=== PATIENT | female | born 1965 | race Caucasian/White ===

== ENCOUNTER 2025-04-28 00:49 | Emergency (ER) | payer BC, SELFPAY ==
[2025-04-28] VITALS (37 sets, daily range): BP systolic 90–123; BP diastolic 56–68; PULSE 73–105; RESP 12–25; TEMP 36.4–36.6; O2SAT 92–100
--- NOTE | ~2025-04-28 | CT_ITS ---
EXAMINATION: CT abdomen pelvis w con DATE: 04/28/2025 03:50 INDICATION: Epigastric pain TECHNIQUE: Computed tomography (CT) of the abdomen and pelvis was performed with 100 cc Omnipaque 350 intravenous contrast. The dose-length product was 204.60 mGy-cm. Automated exposure control and iterative reconstruction technique were employed. COMPARISON: None. FINDINGS: Lung bases unremarkable. Heart size normal. No significant pleural or pericardial effusion. Fatty infiltration of the liver. Cholelithiasis. No secondary findings to suggest cholecystitis. The spleen, pancreas, adrenal glands and kidneys are unremarkable. Nonobstructive bowel gas pattern. Moderate colonic fecal loading. No significant vascular abnormality. Nonobstructive bowel gas pattern. Moderate gastric distention with air-fluid levels. No wall thickening. No significant vascular abnormality. No lymphadenopathy. Moderate lumbar spondylosis most advanced at L4-5 and L5-S1. IMPRESSION: 1. No acute abdominal abnormality. Reviewed, dictated and finalized at location O.
[2025-04-28] MEDS: SODIUM CHLORIDE 0.9% IV 1,000 ML 999 ML IV CONT (01:05)
[2025-04-28] MEDS: FAMOTIDINE 20 MG/2 ML VIAL IV PUSH (01:06)
[2025-04-28] MEDS: ONDANSETRON INJ 4 MG/2 ML VIAL IV PUSH (01:06)
[2025-04-28 01:10] LABS: Hematocrit 45.1 % (37.0-47.0); Hemoglobin 14.6 g/dL (12.0-15.0); Immature Granulocyte Percent A 0.1 % (0-0.5); Lymphocytes Absolute Auto 1.79 K/mm3 (0.9-3.2); Mean Corpuscular HGB Conc 32.4 g/dl (32-36); Mean Corpuscular Hemoglobin 30.6 pg (26-34); Mean Corpuscular Volume 94.5 fl (80-100); Nucleated Red Blood Cells Absolute Auto 0.000 K/mm3 (0.0-0.012); Nucleated Red Blood Cells Perc 0.0 % (0.0-0.2); Platelet Count Result 233 k/mm3 (150-375); Red Blood Count 4.77 M/mm3 (4.2-5.4); White Blood Count 7.8 K/mm3 (4.5-10.0)
--- NOTE | 2025-04-28 01:12 | ECG_ITS ---
Test Date: 2025-04-28 01:22:12 Measurements Intervals [place] Rate: 92 P: 79 NE: 178 QRS: 55 QRSD: 83 T: 72 QT: 346 QTc: 429 Interpretive Statements SINUS RHYTHM POSSIBLE RIGHT VENTRICULAR CONDUCTION DELAY BASELINE ARTIFACT- I, III, AVL BORDERLINE ECG No previous ECG available for comparison Electronically Signed On 04-28-2025 07:36:46 CDT by Hugo Meeks D.O.
--- OUTSIDE RECORDS SUMMARY | 2025-04-28 01:15 | XMS_ITS | Encounter Summary ---
Author Organization [facility] Address [address] [place] [address] Care Team Providers Care Oil Heater Operator Name Role Phone Svetlana Howard Primary Care Provider + Westley Castro MD Primary Care Provider [phone] Sherine Dow MD Primary Care Provider + Encounter Details Date Type Department Care Team (Late st Contact Info) Description 07/23/2024 Flotypet Message Enc [facility] Family & Internal Medicine [facility] [address] [place] [phone] Svetlana Howard FNP-BC [address] [place] [address] Request for meds Social History Tobacco Use Types Packs/Day Years Used Date Smoking Tobacco: Never Smokeless Tobacco: Never Comments:non smoker Alcohol Use Standard Drinks/Week Comments Not Currently 0 (1 standard drink = 0.6 oz pur e alcohol) PHQ-2 Answer Date Recorded Patient Health Questionnaire-2 Score 0 05/30/2024 Comments No Sex and Gender Information Value Date Recorded Sex Assigned at Female 02/20/2020 4:04 PM CDT Legal Sex Female 7:13 PM CDT Gender Identity Female 02/20/2020 4:04 PM CDT Sexual Orientation Straight 02/20/2020 4: 04 PM CDT documented as of this encounter Progress Notes * GAVIN Wade - 07/23/2024 4:58 PM CST You can send fluconazole 150 mg PO once, qty 1 tab, no refills, dx yeast infection. If symptoms persist, I would recommend evaluation in the clinic. ER WORKER * Cindy Paulson RN - 07/23/2024 2:08 PM CST Please advise. ER WORKER documented in this encounter Plan of Treatment Upcoming Encounters Date Type Department Care Team (Late st Contact Info) Description 05/08/2025 8:00 AM CDT Appointment [facility] [address] [place], [place] [phone] [place] [address] [place] [address] 12/17/2025 7:30 AM CDT Office Visit [facility] Family Medicine - [place] [address] [place] [address] Sherine Dow MD [address] [place] [address] documented as of this encounter Visit Diagnoses Not on filedocumented in this encounter Additional Health Concerns Assessment Noted Time PHQ-9 Depression Total Score: 4 05/30/20 24 8:05 AM CDT documented as of this encounter Care Teams Oil Heater Operator Relationship Specialty Start Date End Date Svetlana Howard FNP-BC [address], [address] [place] [address] PCP - General Nurse Practitioner Family 06/27/2303/05 [place] [address] [facility] [address] [place] [address] PCP - General INTERNAL MEDICINE 03/16/25 04/25/25 Sherine Dow MD [address] [place] [address] PCP - General FAMILY PRACTICE 04/26/25 documented as of this encounter
--- OUTSIDE RECORDS SUMMARY | 2025-04-28 01:15 | XMS_ITS | Encounter Summary ---
Author Organization [facility] Address [address] [place] [address] Care Team Providers Care Mobile Equipment Servicer Name Role Phone AnitaSvetlana byrd Gracia [facility] Primary Care Provider + Westley Castro MD Primary Care Provider [phone] Sherine Dow MD Primary Care Provider + Encounter Details Date Type Department Care Team (Late st Contact Info) Description 06/18/2024 CREOpoint Message Enc [facility] Family & Internal Medicine [facility] [address] [place] [address] [facility] Provider referral Social History Tobacco Use Types Packs/Day Years [...] PM CDT documented as of this encounter Plan of Treatment Upcoming Encounters Date Type Department Care Team (Late st Contact Info) Description 05/08/2025 8:00 AM CDT Appointment [facility] [address] [place] [address] [place] [address] [place] [address] 12/17/2025 7:30 AM CDT Office Visit [facility] Family Medicine - [place] [address] [place] [address] Sherine Dow MD [address] [place] [phone] documented as of this encounter Visit Diagnoses Not on filedocumented in this encounter Additional Health Concerns Assessment Noted Time PHQ-9 Depression Total Score: 4 05/30/20 24 8:05 AM CDT documented as of this encounter Care Teams Mobile Equipment Servicer Relationship Specialty Start Date End Date Svetlana Howard, [facility]- [address], [address] [place] [address] PCP - General Nurse Practitioner Family 06/27/2303/05 [place] [address] [place] [address] PCP - General INTERNAL MEDICINE 03/16/25 04/25/25 Sherine Dow MD [address] [place] [address] PCP - General FAMILY PRACTICE 04/26/25 documented as of this encounter
--- OUTSIDE RECORDS SUMMARY | 2025-04-28 01:15 | XMS_ITS | Encounter Summary ---
Author Organization [facility] Address [address] [place] [address] Care Team Providers Care Vacuum Applicator Operator Name Role Phone Beatriz Najera NP Primary Care Provider Farzaneh Brennan [facility] Primary Care Provider + Svetlana Howard [facility] Primary Care Provider + Westley Castro MD Primary Care Provider [phone] Sherine Dow MD Primary Care Provider + Encounter Details Date Type Department Care Team (Late st Contact Info) Description 07/23/2019 SureVisitharShoutEm Message Enc [facility] [address] [place] [address] [place], [facility] Provider Medication/ mammogram Social History Tobacco Use Types Packs/Day Years Used Date Smoking Tobacco: Never Smokeless Tobacco: Never Alcohol Use Standard Drinks/Week Comments Yes 0 (1 standard drink = 0.6 oz pur e alcohol) socially Comments No Sex and Gender Information Value Date Recorded Sex Assigned at Female 02/20/2020 4:04 PM CDT Legal Sex Female 7:13 PM CDT Gender Identity Female 02/20/2020 4:04 PM CDT Sexual Orientation Straight 02/20/2020 4: 04 PM CDT documented as of this encounter Plan of Treatment Upcoming Encounters Date Type Department Care Team (Late st Contact Info) Description 05/08/2025 8:00 AM CDT Appointment [facility] [address] [place] [address] [place] [address] [place] [address] 12/17/2025 7:30 AM CDT Office Visit [facility] Family Medicine - [place] [address] [place] [address] Sherine Dow MD [address] [place] [address] documented as of this encounter Visit Diagnoses Not on filedocumented in this encounter Care Teams Vacuum Applicator Operator Relationship Specialty Start Date End Date Beatriz Najera NP PCP - General Nurse Practitioner Family 09/08/18 9 Farzaneh Grey, [facility] PCP - General Nurse Practitioner Family 08/08/19 Svetlana Howard, [facility] [address], [address] [place] [address] PCP - General Nurse Practitioner Family 06/27/2303/05 [place] [address] [place] [address] PCP - General INTERNAL MEDICINE 03/16/25 04/25/25 Sherine Dow MD [address] [place] [phone] PCP - General FAMILY PRACTICE 04/26/25 documented as of this encounter
--- OUTSIDE RECORDS SUMMARY | 2025-04-28 01:15 | XMS_ITS | Encounter Summary ---
Author Organization [facility] Address [address] [place] [address] Care Team Providers Care Hand Winder Name Role Phone Beatriz Najera NP Primary Care Provider Farzaneh Brennan [facility] Primary Care Provider + Svetlana Howard [facility] Primary Care Provider + Westley Castro MD Primary Care Provider [phone] Sherine Dow MD Primary Care Provider + Encounter Details Date Type Department Care Team (Late st Contact Info) Description 07/23/2019 MyChart Message Enc [facility] Family & Internal Medicine [address] [phone] Beatriz Najera NP Follow Up/Update Social History Tobacco Use Types Packs/Day Years [...] as of this encounter Progress Notes * Angela Kamara MA - 07/23/2019 7:26 AM CST Which mg would you like me to send? Also, ok to place order for mammogram? MILL OPERATOR documented in this encounter Plan of Treatment Upcoming Encounters Date Type Department Care Team (Late st Contact Info) Description 05/08/2025 8:00 AM CDT Appointment [facility] [address] [place] [address] [place] [address] [place] [address] 12/17/2025 7:30 AM CDT Office Visit [facility] Family Medicine - [place] [address] [place] [phone] Sherine Dow MD [address] [place] [phone] documented as of this encounter Visit Diagnoses Not on filedocumented in this encounter Care Teams Hand Winder Relationship Specialty Start Date End Date Beatriz Najera NP PCP - General Nurse Practitioner Family 09/08/18 9 Farzaneh Grey [facility]- PCP - General Nurse Practitioner Family 08/08/19 Svetlana Howard, [facility]- [address], [address] [place] [address] PCP - General Nurse Practitioner Family 06/27/2303/05 [place] [address] [address] [place] [address] PCP - General INTERNAL MEDICINE 03/16/25 04/25/25 Sherine Dow MD [address] [place] [address] PCP - General FAMILY PRACTICE 04/26/25 documented as of this encounter
--- OUTSIDE RECORDS SUMMARY | 2025-04-28 01:15 | XMS_ITS | Encounter Summary ---
Author Organization [facility] Address [address] [place] [address] Care Team Providers Care Ammonia Print Operator Name Role Phone Svetlana Howard [facility] Primary Care Provider + Westley Castro MD Primary Care Provider [phone] Sherine Dow MD Primary Care Provider + Encounter Details Date Type Department Care Team (Late st Contact Info) Description 01/14/2025 Uptake Medical[employer] Message Enc [facility] Family & Internal Medicine [facility] [phone] [place] [phone] Svetlana Howard, [address] [place] [address] PT Referral Social History Tobacco Use Types Packs/Day Years Used Date Smoking Tobacco: Never Passive Smoke Exposure: Never Smokeless Tobacco: Never Comments:non smoker Alcohol Use Standard Drinks/Week Comments Not Currently 0 (1 standard drink = 0.6 oz pur e alcohol) PHQ-2 Answer Date Recorded Patient Health Questionnaire-2 Score 2 11/26/2024 Comments No Sex and Gender Information Value Date Recorded Sex Assigned at Female 02/20/2020 4:04 PM CDT Legal Sex Female 7:13 PM CDT Gender Identity Female 02/20/2020 4:04 PM CDT Sexual Orientation Straight 02/20/2020 4: 04 PM CDT documented as of this encounter Plan of Treatment Upcoming Encounters Date Type Department Care Team (Late st Contact Info) Description 05/08/2025 8:00 AM CDT Appointment [facility] [address] [place] [address] [place] [address] [place] [address] 12/17/2025 7:30 AM CDT Office Visit [facility] Family Medicine - [place] [address] [place] [address] Sherine Dow MD [address] [place] [phone] documented as of this encounter Visit Diagnoses Not on filedocumented in this encounter Additional Health Concerns Assessment Noted Time PHQ-9 Depression Total Score: 5 11/27/19 9:55 AM CDT documented as of this encounter Care Teams Ammonia Print Operator Relationship Specialty Start Date End Date Svetlana Howard, [employer]- [address], [address] [place] [address] PCP - General Nurse Practitioner Family 06/27/2303/05 [place] [address] [place] [address] PCP - General INTERNAL MEDICINE 03/16/25 04/25/25 Sherine Dow MD [address] [place], [place] [address] PCP - General FAMILY PRACTICE 04/26/25 documented as of this encounter"
--- OUTSIDE RECORDS SUMMARY | 2025-04-28 01:15 | XMS_ITS | Encounter Summary ---
Author Organization [facility] Address [address] [place] [address] Care Team Providers Care Senior Test Analyst Name Role Phone Svetlana Howard [facility] Primary Care Provider + Westley Castro MD Primary Care Provider [phone] Sherine Dow MD Primary Care Provider + Encounter Details Date Type Department Care Team (Late st Contact Info) Description 08/17/2024 ApeniMEDt Message Enc [facility] Family & Internal Medicine [facility] [address] [place] [phone] Svetlana Howard, [address] [place] [address] Estrogen Social History Tobacco Use Types Packs/Day Years [...] as of this encounter Progress Notes * Aniya Harris MA - 08/17/2024 4:49 PM CST Called pt and let her know Svetlana's response. Pt asked if she was to get an increase on the oral dose if it would help with the dryness and if she was to switch back what would the directions be? The two everyday for a week and then twice a week like before? OLOGY TECHNICIAN * GAVIN Wade - 08/17/2024 3:58 PM CST I would not recommend oral and topical estrogen. The benefits of topical estrogen are that it does not have the systemic effects as oral estrogen and can be beneficial for vaginal dryness. If she is having systemic symptoms, like hot flashes, mood changes etc related to menopause, topical estrogen will not help with this. Okay to send topical Estrace 42.5 gram, 2 refills, dx vaginal dryness. OLOGY TECHNICIAN * Cindy Paulson RN - 08/17/2024 12:43 PM CST Please advise. OLOGY TECHNICIAN documented in this encounter Plan of Treatment Upcoming Encounters Date Type Department Care Team (Late st Contact Info) Description 05/08/2025 8:00 AM CDT Appointment [facility] [address] [place] [address] [place] [address] [place] [phone] 12/17/2025 7:30 AM CDT Office Visit [facility] Family Medicine - [place] [address] [place] [address] Sherine Dwo MD [address] [place], [place] [address] documented as of this encounter Visit Diagnoses Not on filedocumented in this encounter Additional Health Concerns Assessment Noted Time PHQ-9 Depression Total Score: 4 05/30/20 24 8:05 AM CDT documented as of this encounter Care Teams Senior Test Analyst Relationship Specialty Start Date End Date Svetlana Howard, [facility]- [address], [address] [place] [address] PCP - General Nurse Practitioner Family 06/27/2303/05 [place] [address] [place] [address] PCP - General INTERNAL MEDICINE 03/16/25 04/25/25 Sherine Dow MD [address] [place] [address] PCP - General FAMILY PRACTICE 04/26/25 documented as of this encounter
--- OUTSIDE RECORDS SUMMARY | 2025-04-28 01:15 | XMS_ITS | Clinical Summary ---
Author Organization [facility] Address [address] [place] [address] Care Team Providers Care Biztalk Administrator Name Role Phone Sherine Dow MD Primary Care Provider + Allergies Active Allergy Reactions Criticality Noted Date Comments Oxycodone-Acetaminophen Vomiting 02/17/2018 Trazodone Dizziness,Headache,N ausea Only Low 02/05/2022 Medications Cholecalciferol (VITAMIN D) 1000 UNIT tablet Take 1 tablet (25 mcg total) by mouth daily. 8 Active EMGALITY 120 MG/ML Solution Auto-injectorIn dications:1 shot monthly monthly. Indications: 1 shot monthly 0 Active Acetaminophen (TYLENOL ARTHRITIS PAIN OR) Active estradiol (CLIMARA) 0.025 MG/24HRIndicati ons:Vasomotor symptoms due to menopause Place 1 patch (0.025 mg total) onto the skin once a week. 12 patch 3 5 Active Estradiol (VAGIFEM) 10 MCG vaginal tabletIndicatio ns:Vaginal dryness, menopausal Place 10 mcg vaginally twice a week. 24 tablet 3 5 Active amitriptyline (ELAVIL) 25 MG tabletIndicatio ns:Episode of recurrent major depressive disorder, unspecified depression episode severity,PRABHU (generalized anxiety disorder) Take 0.5 tablets (12.5 mg total) by mouth nightly at bedtime. 50 tablet 3 5 Active buPROPion XL (WELLBUTRIN XL) 150 MG 24 hr tabletIndicatio ns:Episode of recurrent major depressive disorder, unspecified depression episode severity Take 1 tablet (150 mg total) by mouth daily. 90 tablet 3 5 Active fexofenadine (HELEN ALLERGY) 180 MG tablet 4 04/26/20 25 Discontinu ed(Therapy completed) amitriptyline (ELAVIL) 25 MG tabletIndicatio ns:Episode of recurrent major depressive disorder, unspecified depression episode severity,PRABHU (generalized anxiety disorder) Take 0.5 tablets (12.5 mg total) by mouth nightly at bedtime. 50 tablet 3 4 04/26/20 25 Discontinu ed(Reorder ) estradiol (ESTRACE) 0.1 MG/GM vaginal creamIndication s:Vaginal dryness, menopausal Place 2 g vaginally 2 (two) times a week. 42.5 g 2 4 04/26/20 Discontinu ed(Alterna te therapy) diazePAM (VALIUM) 2 MG tabletIndicatio ns:Neck pain Take 1 tablet (2 mg total) by mouth every 6 (six) hours as needed for Anxiety. 20 tablet 5 04/26/20 25 Discontinu ed(Therapy completed) buPROPion XL (WELLBUTRIN XL) 150 MG 24 hr tabletIndicatio ns:Episode of recurrent major depressive disorder, unspecified depression episode severity Take 1 tablet by mouth once daily 90 tablet 3 5 04/26/20 25 Discontinu ed(Reorder ) Active Problems Problem Noted Date Diagnosed Date Vaginal dryness, menopausal 11/28/2023 Vasomotor symptoms due to menopause 11/28/2023 Family history of aortic aneurysm 09/28/2023 PRABHU (generalized anxiety disorder) 04/14/2022 Overview (04/26/2025): - Reports anxiety and depression, with anxiety being more pronounced - Works from home and feels isolated due to [employer] 's frequent travel - Poor sleep quality - Takes a half dose of amitriptyline - Bupropion previously disrupted sleep - Referred to a psychiatrist and initiated on amitriptyline - Condition is manageable Migraine without aura and wi thout status migrainosus, not intractable 04/18/2020 Overview (04/26/2025): - Managed with Emgality and amitriptyline - Good symptom control - follows with neurology History of meningioma 11/21/2018 Overview (04/26/2025): - Underwent gamma knife surgery 3 years ago at [facility] - Annual follow-ups with no changes or neurological deficits post-surgery - Experienced severe headaches following the procedure Depression 02/17/2018 Resolved Problems Problem Noted Date Diagnosed Date Resolved Date Environmental and seasonal allergies 11/28/2023 04/26/2025 Chronic constipation 06/14/2019 023 Overview (08/12/2019): Last Assessment & Plan: The patient's symptoms seem most consistent with chronic constipation likely related to slow transit. The Metamucil may be contributing to her bloating. We will plan for a KUB today and if this shows retained stool, we would like her to switch to MiraLax. She can try taking a MiraLax clean out and then just a baseline half to 1 scoop daily to generate a soft and easy bowel movement every day to every other day. If the KUB is normal, we would consider an medication like nortriptyline for pain. If the abdominal pain continues in the absence of constipation, we discussed the possibility of nortriptyline or Levsin. The nortriptyline may have the side benefit of also helping with her migraines. Cardiovascular disease 01/27/201909/28 Crohn disease ([facility]) 2018 08/24/2021 Lower abdominal pain 06/15/2018 022 Overview (08/12/2019): Overview: Added automatically from request for surgery [id number] Weight loss 06/15/2018 08/24/2021 Overview (08/12/2019): Overview: Added automatically from request for surgery [id number] Generalized anxiety disorder 02/17/2018 04/14/2022 Encounter for preventive health examination 02/17/2018 05/16/2020 Hormone replacement therapy 02/17/2018 01/08/2023 Encounters Date Type Department Care Team Description 04/26/2025 8:10 AM CDT Office Visit [facility] Family Medicine - [place] [address] [place] [address] Sherine Dow MD Follow Up (Transferring from [place]. ) 04/26/2025 Travel 02/21/2025 Scan HEALTH INFO SRVCS Scanned, Doc [facility] 01/29/2025 Eventure Interactive Message Enc [facility] Family & Internal Medicine - [place] [address] [place] [address] Hiral Garza, ENTRY LEVEL ACCOUNTING CLERK-BC FMLA from Last 3 Months Immunizations Immunization Administration Dates Next Due Fluzone (IIV3, Trivalent, 0. 5 ML Prefilled Syringe) 05/30/2024 Fluzone 6 Months+ Quad (0.5 mL Prefilled Syringe) 07/21/2019,2018 Influenza Adult (Generic) 06/24/2022,07/18/2021, 06/16/2020 MODERNA COVID-19 (12+) MRNA, LNP-S, PF, 100 MCG/ 0.5 ML DOSE 10/07/2020,09/12/2020 MODERNA COVID-19 (ASPHALT HEATER OPERATOR LUIS AHSAN), MRNA, LNP-S, PF, 50 MCG/ 0.25 ML DOSE 09/04/2021 Family History Medical History Relation Comments Aortic aneurysm Brother 1 Drug Abuse Brother 1 bipolar disorder Brother 1 Mental Health Brother 2 No Known Problems Brother 3 Cancer Father pancreatic cancer Father Breast Cancer Maternal Grandmother 70'S aortic aneurysm Mother bipolar disorder Mother Alcohol Abuse Sister 1 aortic aneurysm Sister 1 Depression Sister 2 No Known Problems Sister 3 Cancer Son 1 Depression Son 1 Early Son 1 luekemia Son 1 Drug Abuse Son 2 Mental Health Son 2 None Neg Hx Relation Status Comments Brother 1 Brother 2 Alive Brother 3 Alive Father Maternal Grandmother Mother Sister 1 Alive Sister 2 Alive Sister 3 Alive Son 1 Son 2 Alive Social History Tobacco Use Types Packs/Day Years Used Date Smoking Tobacco: Never Passive Smoke Exposure: Never Smokeless Tobacco: Never Tobacco Cessation:Counseling Given: No Comments:non smoker Alcohol Use Standard Drinks/Week Comments [...] Orientation Straight 02/20/2020 4: 04 PM CDT Occupation Industry Job Start Date Job End Date [employer] Not on file Not on file Not on file Last Filed Vital Signs Vital Sign Reading Time Taken Comments Blood Pressure 106/71 04/26/2025 8:08 AM CDT Pulse 79 04/26/2025 8:08 AM CDT Temperature 36.5 C (97.7 F) 04/26/2025 8:08 AM CDT Respiratory Rate 20 12/12/2024 2:46 PM CDT Oxygen Saturation 100% 04/26/2025 8:08 AM CDT Inhaled Oxygen Concentration - - Weight 57.2 kg (126 lb) 04/26/2025 8:08 AM CDT Height 160 cm (5' 3) 04/26/2025 8:08 AM CDT Body Mass Index 22.32 04/26/2025 8:08 AM CDT Plan of Treatment Upcoming Encounters Date Type Department Care Team (Late st Contact Info) Description 05/08/2025 8:00 AM CDT Appointment [facility] [address] [place], [place] [phone] [place] [address] [facility] [address] [place], [place] [phone] 12/17/2025 7:30 AM CDT Office Visit [facility] Family Medicine - [place] [address] [place] [address] Sherine Dow MD [address] [place] [address] [phone] Health Maintenance Due Date Last Done Comments Hepatitis C 1983 Pneumococcal Vaccine: 50+ Years (1 of 1 - PCV) 2015 Mammogram Screening 02/09/2025 02/10/2024, 08/20/2022, 08/20/2021, Additional history exists Annual Physical 11/26/2025 11/26/2024, 08/0 12/2021, 07/08/2020 COVID-19 Vaccine ( season) 2025 10/21/2023, 08/25/2022, 09/04/2021, Additional history exists Postponed from 05/06/2024 (Patient Refused) Zoster Vaccines (1 of 2) 11/26/2025 Pos tponed from 2015 (Going to Outside Clinic) Colorectal Cancer Screening Colonoscopy (10 Years) 06/30/2028 06/30/2018 DTaP, Tdap and Td Vaccines (1 - Tdap) 09/05/2028 Postponed from 1984 (Future Appointment) PHQ-2 (Physician [place]) Completed 11/26/2024 Meningococcal B Vaccine Aged Out No l onger eligible based on patient's age to complete this topic Meningococcal Vaccine Aged Out No josephine heriberto eligible based on patient's age to complete this topic RSV Immunizations Under 20 Months Aged Out No longer eligible based on patient's age to complete this topic Procedures Procedure Name Priority Date/Time Associated Diagnosis Comments MG SCREENING W EFREN PAM DIGI Routine 02/10/2024 10:46 AM CDT Encounter for screening mammogram for malignant neoplasm of breast COLONOSCOPY/EGD GENERIC (SCAN ORDER) Routine 06/30/2018 from Last 3 Months or Most Recently Relevant to Health Maintenance Results * MG SCREENING W EFREN PAM DIGI (02/10/2024 10:46 AM CDT) Anatomical Region Laterality Modality Breast Bilateral Mammography 02/10/2024 3:25 PM CDT Impressions 02/10/2024 3:52 PM CDT ===== IMPRESSION: ===== 1. Stable mammographic appearance with no new findings to suggest malignancy in either breast. Assessment: ACR BI-RADS 2 - BENIGN FINDING(S) Recommendation: 1:Routine Screening Bilateral Comments: Ordered By: HIRAL GARZA Interpreted By: Marcos Velasquez, 02/10/2024 3:25 PM Narrative 02/10/2024 3:52 PM CDT EXAMINATION: Digital bilateral screening mammogram with 3-D tomosynthesis EXAM DATE/TIME: 02/10/2024 10:32 AM REASON FOR EXAM: breast cancer screening Maternal grandmother with breast carcinoma in her 70s. COMPARISON: 08/20/2021.. 08/20/2022 Technique: Digital screening mammography of both breasts was performed in addition to 3-D Tomosynthesis technique. This study was read with the assistance of a computer-aided detection system. Tissue density: There are scattered areas of fibroglandular density. Findings: Stable benign lymph node in the upper outer quadrant of the right breast. There is no new focal asymmetry, dominant mass lesion, area of skin thickening, or cluster of suspicious appearing calcifications in either breast to suggest malignancy. us Hiral Garza ENTRY LEVEL ACCOUNTING CLERK-BC MAMMO Final Re sult * COLONOSCOPY/EGD (06/30/2018) us Documents Scanned SCANNING Final Result [facility] from Last 3 Months or Most Recently Relevant to Health Maintenance [place] [address] [facility] Care Teams Biztalk Administrator Relationship Specialty Start Date End Date Sherine Dow MD [address] [place] [phone] PCP - General FAMILY PRACTICE 04/26/25
--- OUTSIDE RECORDS SUMMARY | 2025-04-28 01:15 | XMS_ITS | Encounter Summary ---
Author Organization [facility] Address [address] [place] [address] Care Team Providers Care Frame Table Operator Name Role Phone Beatriz Najera NP Primary Care Provider Farzaneh Brennan [facility] Primary Care Provider + Svetlana Howard [facility] Primary Care Provider + Westley Castro MD Primary Care Provider [phone] Sherine Dow MD Primary Care Provider + Encounter Details Date Type Department Care Team (Late st Contact Info) Description 08/06/2019 MyCOstial Solutionst Message Enc [facility] Family & Internal Medicine [address] [phone] Destiney Thompson NP RE: Follow Up/Update Social History Tobacco Use Types [...] as of this encounter Progress Notes * Destiney Thompson NP - 08/06/2019 4:10 PM CST I will send in diflucan again, take one today and repeat in 48 hours. If still having burning and itching, may need to see in office to make sure it is not something else. Thanks. radha AL HEALTH DIRECTOR * Barbara Lorenzana, RN - 08/06/2019 3:05 PM CST Please advise. AL HEALTH DIRECTOR documented in this encounter Plan of Treatment Upcoming Encounters Date Type Department Care Team (Late st Contact Info) Description 05/08/2025 8:00 AM CDT Appointment [facility] [address] [place], [place] [phone] [place] [address] [employer] [address] [place] [phone] 12/17/2025 7:30 AM CDT Office Visit [facility] Family Medicine - [place] [address] [place] [phone] Sherine Dow MD [address] [place] [phone] documented as of this encounter Visit Diagnoses Not on filedocumented in this encounter Care Teams Frame Table Operator Relationship Specialty Start Date End Date Beatriz Najera NP PCP - General Nurse Practitioner Family 09/08/18 9 Farzaneh Grey, [facility] PCP - General Nurse Practitioner Family 08/08/19 Svetlana Howard, [facility]- [address], [address] [place] [address] PCP - General Nurse Practitioner Family 06/27/2303/05 [place] [address] [facility] [address] [place] [address] PCP - General INTERNAL MEDICINE 03/16/25 04/25/25 Sherine Dow MD [address] [place] [address] PCP - General FAMILY PRACTICE 04/26/25 documented as of this encounter
--- OUTSIDE RECORDS SUMMARY | 2025-04-28 01:15 | XMS_ITS | Encounter Summary ---
Author Organization [facility] Address [address] [place] [address] Care Team Providers Care Mechanical Insulator Name Role Phone Svetlana HowardGUANAKITO Primary Care Provider + Westley Castro MD Primary Care Provider [phone] Sherine Dow MD Primary Care Provider + Encounter Details Date Type Department Care Team (Late st Contact Info) Description 01/29/2025 SimplyCastt Message Enc [facility] Family & Internal Medicine [facility] [address] [place] [phone] Svetlana Howard [facility] [address] [place] [address] FMLA Social History Tobacco Use Types Packs/Day Years [...] encounter Progress Notes * GAVIN Wade - 01/30/2025 11:59 AM CDT Okay. I will complete when I have received the paperwork. documented in this encounter Plan of Treatment Upcoming Encounters Date Type Department Care Team (Late st Contact Info) Description 05/08/2025 8:00 AM CDT Appointment [facility] [address] [place] [address] [place] [address] [address] [place] [address] 12/17/2025 7:30 AM CDT Office Visit [facility] Family Medicine [facility] [address] [place] [phone] Sherine Dow MD [address] [place] [address] [phone] documented as of this encounter Visit Diagnoses Not on filedocumented in this encounter Additional Health Concerns Assessment Noted Time PHQ-9 Depression Total Score: 5 11/27/19 25 9:55 AM CDT documented as of this encounter Care Teams Mechanical Insulator Relationship Specialty Start Date End Date Svetlana Howard FNP- [address], [address] [place] [address] PCP - General Nurse Practitioner Family 06/27/2303/05 [place] [address] [address] [place] [address] PCP - General INTERNAL MEDICINE 03/16/25 04/25/25 Sherine Dow MD [address] [place] [address] PCP - General FAMILY PRACTICE 04/26/25 documented as of this encounter
--- OUTSIDE RECORDS SUMMARY | 2025-04-28 01:15 | XMS_ITS | Encounter Summary ---
Author Organization [facility] Address [address] [place] [address] Care Team Providers Care Mender Hand Name Role Phone Beatriz Najera NP Primary Care Provider Farzaneh Brennan [facility] Primary Care Provider + Svetlana Howard [facility] Primary Care Provider + Westley Castro MD Primary Care Provider [phone] Sherine Dow MD Primary Care Provider + Encounter Details Date Type Department Care Team (Late st Contact Info) Description 09/25/2018 MyChart Message Enc [facility] Family & Internal Medicine [address] [phone] Beatriz Najera NP RE: Medication Questions Social History Tobacco Use Types Packs/Day Years [...] Info) Description 05/08/2025 8:00 AM CDT Appointment [address] [place] [address] [place] [address] [place] [address] 12/17/2025 7:30 AM CDT Office Visit [facility] Family Medicine - [place] [address] [place] [phone] Sherine Dow MD [address] [place] [phone] documented as of this encounter Visit Diagnoses Not on filedocumented in this encounter Care Teams Mender Hand Relationship Specialty Start Date End Date Beatriz Najera NP PCP - General Nurse Practitioner Family 09/08/18 9 Farzaneh Grey, [facility]- PCP - General Nurse Practitioner Family 08/08/19 Svetlana Howard, [facility]- [address], [address] [place] [address] PCP - General Nurse Practitioner Family 06/27/2303/05 [place] [address] [place] [address] PCP - General INTERNAL MEDICINE 03/16/25 04/25/25 Sherine Dow MD [address] [place] [address] PCP - General FAMILY PRACTICE 04/26/25 documented as of this encounter
--- OUTSIDE RECORDS SUMMARY | 2025-04-28 01:15 | XMS_ITS | Clinical Summary ---
Author Organization [facility] al Address [address] [place] [address] Care Team Providers Care Hat Maker Name Role Phone Nila Rush MD Unavailable Joselito Major MD Unavailable Kady Salinas PhD Unavailable [phone] Svetlana Howard NP Primary Care Provider [phone] Allergies Active Allergy Reactions Criticality Noted Date Comments Oxycodone-Acetaminophen Vomiting Low 09/30/2016 Trazodone Dizziness,Headache,N ausea only Low 02/05/2022 Medications buPROPion SR (WELLBUTRIN SR) 150 mg 12 hr tablet Take 1 tablet (150 mg total) by mouth daily 0 03/30/20 18 Active cholecalciferol (VITAMIN D-3) 1,000 unit tablet Take 1 tablet (1,000 Units total) by mouth daily Active amitriptyline (ELAVIL) 25 mg tablet TAKE 1/2 (ONE-HALF) TABLET BY MOUTH NIGHTLY AT BEDTIME 01/21/20 23 Active Premarin vaginal cream Insert into the vagina Active fexofenadine (HELEN) 180 mg tablet 1 tablet (180 mg total) 11/18/19 24 Active galcanezumab-gnlm (Emgality Pen) 120 mg/mL pen injector INJECT 120 MG SUBCUTANEOUSLY EVERY 30 DAYS. 3 mL 2 01/01/20 25 Active rizatriptan LAMINATING MACHINE OPERATOR HELPER (MAXALT-LAMINATING MACHINE OPERATOR HELPER) 10 mg disintegrating tabletIndications: Migraine without aura and without status migrainosus, not intractable Take 1 tablet (10 mg total) by mouth once as needed for migraine May repeat in 2 hours if unresolved. Do not exceed 30 mg in 24 hours. 27 tablet 3 01/16/20 25 026 Active Active Problems Problem Noted Date Diagnosed Date JOSEPHINE (obstructive sleep apnea) 01/15/2025 PRABHU (generalized anxiety disorder) 04/14/2022 Migraine headache 04/18/2020 Migraine without aura and wi thout status migrainosus, not intractable 04/18/2020 Chronic constipation 06/14/2019 Assessment & Plan (06/14/2019 8:49 AM CDT): The patient's symptoms seem most consistent with [...] also helping with her migraines. Cardiovascular disease 01/27/2019 Meningioma 11/21/2018 Weight loss 06/15/2018 Overview (06/15/2018): Added automatically from request for surgery [id number] Lower abdominal pain 06/15/2018 Overview (06/15/2018): Added automatically from request for surgery [id number] Depression 02/17/2018 Apnea 04/14/2017 Daytime somnolence 04/14/2017 Fatigue 04/14/2017 Gasping for breath 04/14/2017 Morning headache 04/14/2017 Restless sleeper 04/14/2017 Snoring 04/14/2017 Epigastric discomfort 04/04/2017 Hematochezia 04/04/2017 Hereditary disease in family possibly affecting fetus, affecting management of mother in 01/15/2017 Aneurysm of thoracic aorta 01/13/2017 Chest pain 01/13/2017 Breast tenderness 09/30/2016 Resolved Problems Problem Noted Date Diagnosed Date Resolved Date Diarrhea 06/15/2018 07/20/2019 Overview (06/15/2018): Added automatically from request for surgery [id number] Assessment & Plan (06/14/2019 8:50 AM CDT): Though the patient denies any diarrhea, she did seem to respond to budesonide. We would like to check her stools for calprotectin to rule out inflammation in the bowel. Immunizations Immunization Administration Dates Next Due Influenza, Quadrivalent, Spl it, Preservative Free, Intramuscular 07/21/2019,2018 Influenza, Unspecified 06/24/2022,07/18/2021,08/2020 Moderna SARS-CoV-2 Monovalen t Vaccination (12+ YRS) 10/07/2020,09/12/2020 Surgical History Surgery Date Site/Laterality Comments [place] TOTAL ABDOMINAL HYSTERECT W/WO RMVL TUBE OVARY Total Abdominal Hysterectomy - (Added by TW Conv) [place] OSTECTOMY CALCANEUS SPUR W/WO PLNTAR FASCIAL RLS Ostectomy Calcaneus For Spur - (Added by TW Conv) [place] TONSILLECTOMY PRIMARY/SECONDARY <AGE 12 Tonsillectomy - (Added by TW Conv) Medical History Medical History Date Comments Personal history of other me ntal and behavioral disorders History of anxiety - (Added by TW Conv) Personal history of other me ntal and behavioral disorders History of depression - (Add ed by TW Conv) Constipation Meningioma (HCC) Migraine TMJ (dislocation of temporomandibular joint) Family History Medical History Relation Name Comments Aortic aneurysm Brother Cancer Father Family history of malignant neoplasm - (Added by TW Conv) Pancreatic cancer Father Family his tory of malignant neoplasm of pancreas - (Added by TW Conv) Breast cancer Maternal Grandmother Family history of malignant neoplasm of breast - (Added by TW Conv) Aortic aneurysm Mother Sudden Cardiac Mother Family history of sudden cardiac - (Added by TW Conv) Aortic aneurysm Sister 1 Sudden Cardiac Sister 1 Family history of sudden cardiac - (Added by TW Conv) Lupus Sister 2 Family history of systemic lupus erythematosus - (Added by TW Conv) Pancreatic cancer Son 1 Family his tory of malignant neoplasm of pancreas - (Added by TW Conv) Cancer Son 2 Family history of malignant neoplasm - (Added by TW Conv) Glaucoma Neg Hx Macular degeneration Neg Hx Relation Name Status Comments Brother Father Maternal Grandmother Mother Sister 1 Sister 2 Son 1 Son 2 Social History Tobacco Use Types Packs/Day Years Used Date Smoking Tobacco: Never Smokeless Tobacco: Never Tobacco Cessation:Counseling Given: Not Answered Alcohol Use Standard Drinks/Week Comments Not Currently 0 (1 standard drink = 0.6 oz pur e alcohol) AUDIT-C Answer Date Recorded Q1: How often do you have a drink containing alc ohol? 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 Not on file Not on file Not on file Obstetrics History Last Filed Vital Signs Vital Sign Reading Time Taken Comments Blood Pressure 102/69 01/15/2025 9:29 AM CDT Pulse 92 01/15/2025 9:29 AM CDT Temperature 36.6 C (97.9 F) 01/15/2025 9:29 AM CDT Respiratory Rate 18 08/07/2024 12:46 PM CARBON SETTER Oxygen Saturation 100% 01/15/2025 9:29 AM CDT Inhaled Oxygen Concentration - - Weight 61 kg (134 lb 8 oz) 01/15/2025 9:29 AM CD T Height 160 cm (5' 3) 01/15/2025 9:29 AM CDT Body Mass Index 23.83 01/15/2025 9:29 AM CDT Plan of Treatment Health Maintenance Due Date Last Done Comments Cervical Cancer Screening 1965 Depression Screening 1965 Hepatitis C Screening 1965 DTaP/Tdap/Td Vaccine (1 - Tdap) 1976 Hepatitis B Screening 1983 Regular Well Visit/Exam 18-64 1983 Zoster Vaccine (1 of 2) 2015 Covid-19 Vaccine ( season) 2024 09/04/2021, 10/07/2020, 09/12/2020 Breast Cancer Screening-Mammogram 02/09/2025 02/10/2024, 02/10/2024, 08/20/2022, Additional history exists Influenza Vaccine (#1) 2025 , 06/24/2022, 07/18/2021, Additional history exists Colon Cancer Screening-Colonoscopy 06/30/2028 06/30/2018 Colon Cancer Screening-CT Colonography Discontinued 06/30/2018 Colon Cancer Screening-DNA Stool Discontinued 06/30/2018 Colon Cancer Screening-FIT Discontinued 06/30/2018 Colon Cancer Screening-Sigmoidoscopy Discontinued 06/30/2018 Pneumococcal vaccine <65 Aged Out No longer eligible based on patient's age to complete this topic Procedures Procedure Name Priority Date/Time Associated Diagnosis Comments COLONOSCOPY 06/30/2018 7:16 AM CDT from Last 3 Months or Most Recently Relevant to Health Maintenance Results * COLONOSCOPY (06/30/2018 7:16 AM CDT) Anatomical Region Laterality Modality Other Narrative Procedure Note Faheem Pinzon MD PhD - 06/30/2018 7:16 AM CDT [facility] Patient Name: Martha Castellanos Procedure Date: 06/30/2018 7:16 AM Date of : 1965 Admit Type: Outpatient Age: 52 Gender: Female Attending MD: Faheem Pinzon MD, PHD Room: [facility] ENDOSCOPY ROOM 02 Note Status: Finalized Procedure: Colonoscopy Indications: Abdominal pain in the left lower quadrant, Chronic diarrhea, Suspected left-sided chronic ulcerative colitis Referring MD: Huong Serrano MD Providers: Faheem Pinzon MD, PHD Medicines: Monitored Anesthesia Care Complications: No immediate complications. Estimated Blood Loss: Estimated blood loss: none. Procedure: Pre-Anesthesia Assessment: - Prior to the procedure, a History and Physical was performed, and patient medications and allergieswere reviewed. The patient is competent. The risks and benefits of the procedure and the sedation optionsand risks were discussed with the patient. All questions were answered and informed consent was obtained. Patient identification and proposed procedure were verified by the physician in the pre-procedure area. Mental Status Examination: alert and oriented.Airway Examination: normal oropharyngeal airway and neck mobility. Respiratory Examination: clear to auscultation. CV Examination: normal. ASA Grade Assessment: II - A patient with mild systemicdisease. After reviewing the risks and benefits, the patientwas deemed in satisfactory condition to undergo the procedure. The anesthesia plan was to use monitored anesthesia care (MAC). Immediately prior to administration of medications, the patient was re-assessed for adequacy to receive sedatives. The heart rate, respiratory rate, oxygen saturations,blood pressure, adequacy of pulmonary ventilation, and response to care were monitored throughout the procedure. The physical status of the patient was re-assessed after the procedure. - Immediately prior to administration ofmedications, the patient was re-assessed for adequacy to receive sedatives. The benefits, risks and alternatives of theprocedure and sedation were discussed and informed consent was obtained. All questions were answered. Please referto the signed informed consent document in the medical record. The scope was passed under direct vision.The [id number] Endoscope was introduced throughthe anus and advanced to the 10 cm into the ileum. The colonoscopy was performed without difficulty. The patient tolerated the procedure well. The quality of the bowel preparation was evaluated using the BBPS ([place] Bowel Preparation Scale) with scores of:Right Colon = 3, Transverse Colon = 3 and Left Colon = 3 (entire mucosa seen well with no residual staining, small fragments of stool or opaque liquid). Thetotal BBPS score equals 9. The quality of the bowel preparation was evaluated using the BBPS (BostonBowel Preparation Scale) with scores of: Right Colon = 3, Transverse Colon = 3 and Left Colon = 3 (entiremucosa seen well with no residual staining, small fragmentsof stool or opaque liquid). The total BBPS score equals9. The bowel preparation used was CoLyte. Findings: The perianal and digital rectal examinations were normal. The terminal ileum appeared normal. Biopsies were taken with a cold forceps for histology. The transverse colon and ascending colon appeared normal. Biopsieswere taken with a cold forceps for histology. A patchy area of mildly erythematous, granular and rdyuynks-jbjjcuv-vmtfjswuu mucosa was found in the recto-sigmoidcolon. Biopsies were taken with a cold forceps for histology. Impression: Follow-up for right upper quadrant pain, diarrhea, abdominal distention, hematochezia. - The examined portion of the ileum was normal. Biopsied. - The transverse colon and ascending colon arenormal. Biopsied. - Erythematous, granular ygkkwalrjwu-pivdhyh-kyopxnhet mucosa in the recto-sigmoid colon. Biopsied. Endoscopic findings could be consistent with mildleft Ulcerative Colitis. Recommendation: - Await pathology results. - Give a trial of oral mesalamine. We appreciate your patient referrals and please donot hesitate to contact our [facility] at [phone]. Electronically signed by Faheem Pinzon MD PHD Faheem Pinzon MD, PHD 06/30/2018 3:24:49 PM . Number of Addenda: 0 Note Initiated On: 06/30/2018 7:16 AM Recognized by the [place] [employer] for promoting quality in endoscopy Faheem Pinzon MD PhD ENDOSCOPY PROCEDURES Final Result from Last 3 Months or Most Recently Relevant to Health Maintenance [place] [address] CHOICE [place]F [place] [facility] CHOICE PLUS [facility] HMO/PPO Address: [address] [address] [place] [address] ANTH ACCESS BL[place] ACCESS [place] BLUE ACCESS [place]OS BLUE ACCESS OOS BLUE ACCESS OOS Care Teams Hat Maker Relationship Specialty [place] [address], [address] [place] [address] PCP - General Family Medicine 01/12/24 Nila Rush MD [address] [place] [address] Radiation Oncologist Radiation Oncology 12/29/21 Joselito Major MD [address] [place] [address] Surgeon Neurosurgery 02/09/22 Kady Salinas, PhD [address] [place] [address] Nurse Practitioner Radiation Oncology 08/11/22
--- OUTSIDE RECORDS SUMMARY | 2025-04-28 01:15 | XMS_ITS | Encounter Summary ---
Author Organization [facility] Address [address] [place] [address] Care Team Providers Care Scheduling Analyst Name Role Phone Farzaneh Grey [facility] Primary Care Provider + Svetlana Howard [facility] Primary Care Provider + Westley Castro MD Primary Care Provider [phone] Sherine Dow MD Primary Care Provider + Encounter Details Date Type Department Care Team (Late st Contact Info) Description 10/29/2020 MyChart Message Enc [facility] Family & Internal Medicine [address] [address] Farzaneh Grey [id number] [place] [address] RE: Referral Request Social History Tobacco Use Types Packs/Day Years Used Date Smoking Tobacco: Never Smokeless Tobacco: Never Alcohol Use Standard Drinks/Week Comments Yes 0 (1 standard drink = 0.6 oz pur e alcohol) socially PHQ-2 Answer Date Recorded PHQ-2 Score - If the patient scores above 3, please move on to questions 3-9 0 07/08/2020 Comments No Sex and Gender Information Value Date Recorded Sex Assigned at Female 02/20/2020 4:04 PM CDT Legal Sex Female 7:13 PM CDT Gender Identity Female 02/20/2020 4:04 PM CDT Sexual Orientation Straight 02/20/2020 4: 04 PM CDT documented as of this encounter Progress Notes * GAVIN Charles - 10/29/2020 10:23 AM CST Okay to place order with dx of back pain. MOLDER documented in this encounter Plan of Treatment Upcoming Encounters Date Type Department Care Team (Late st Contact Info) Description 05/08/2025 8:00 AM CDT Appointment [facility] [address] [place] [address] [place] [address] [place] [address] 12/17/2025 7:30 AM CDT Office Visit [facility] Family Medicine - [place] [address] [place] [id number] Sherine Dow MD [address] [place] [address] documented as of this encounter Visit Diagnoses Not on filedocumented in this encounter Care Teams Scheduling Analyst Relationship Specialty Start Date End Date Farzaneh Grey FNP-BC PCP - General Nurse Practitioner Family 08/08/19 Svetlana Howard FNP-BC [address], [address] [place] [address] PCP - General Nurse Practitioner Family 06/27/2303/05 [place] [address] [place] [address] PCP - General INTERNAL MEDICINE 03/16/25 04/25/25 Sherine Dow MD [address] [place] [address] PCP - General FAMILY PRACTICE 04/26/25 documented as of this encounter
[2025-04-28 01:18] LABS: Alanine Aminotransferase 12 U/L (6-35); Albumin Level 4.9 g/dL (3.5-5.1); Alkaline Phosphatase 71 U/L (38-126); Anion Gap 13 mmol/L (4-12); Aspartate Amino Transferase 22 U/L (14-36); Bilirubin,Total 0.6 mg/dL (0.2-1.3); Blood Urea Nitrogen 15 mg/dL (7-17); Calcium 10.0 mg/dL (8.4-10.2); Carbon Dioxide 24 mmol/L (22-30); Chloride 104 mmol/L (98-107); Estimated CRCL calculation 56 ml/min; Estimated Glomerular Filt Rate > 60; Glucose 107 mg/dL (65-110); Lipase 124 U/L (23-300); Potassium 3.8 mmol/L (3.4-5.0); Sodium 141 mmol/L (137-145); Total Protein 7.6 g/dL (6.3-8.2)
--- NOTE | 2025-04-28 01:29 | ED.ABDPAIN ---
HPI - Abdominal Pain General Chief Complaint: Abdominal Pain <Deandre Wheeler MD - Last Filed: 04/29/25 02:12> Stated Complaint: abd pain medial <Deandre Wheeler MD - Last Filed: 04/29/25 02:12> Time Seen by Provider: 04/28/25 00:58 <Deandre Wheeler MD - Last Filed: 04/29/25 02:12> History of Present Illness HPI narrative: Patient is a 59-year-old female who presents to the emergency department this evening complaining of neno umbilical/mid epigastric abdominal pain associated with nausea and vomiting. Patient states that approximately 5 weeks ago she did start a G LP 1 medication and believes that is the cause of her symptoms. She is concerned for pancreatitis. States that she has tried [id number] pain medication and Zofran without relief. Denies any chest pain or shortness of breath. No additional symptoms or concerns at this time. <Deandre Wheeler MD - Last Filed: 04/29/25 02:12> Related Data Allergies/Adverse Reactions: Allergies Allergy/AdvReac Type Severity Reaction Status Date / Time acetaminophen (From Percocet) AdvReac Intermediate Nausea and Verified 04/28/25 00:58 Vomiting oxycodone (From Percocet) AdvReac Intermediate Nausea and Verified 04/28/25 00:58 Vomiting trazodone AdvReac Unknown Unknown Verified 04/28/25 01:44 <Deandre Wheeler MD - Last Filed: 04/29/25 02:12> Review of Systems Review of Systems: All systems are reviewed and are negative unless stated otherwise in the HPI. <Deandre Wheeler MD - Last Filed: 04/29/25 02:12> PMFSH Family History Family History: Family History Father Family history of pancreatic cancer Patient's father is Mother Patient's mother is Other Family history of malignant neoplasm <Deandre Wheeler MD - Last Filed: 04/29/25 02:12> Social History Social History: Social History Smoking status: Never smoker Alcohol intake: current <Deandre Wheeler MD - Last Filed: 04/29/25 02:12> Exam Narrative: General: Alert, awake, afebrile, in no acute distress. HEENT: PERRL, no rhinorrhea, no post nasal drip, oropharynx clear. Neck: Trachea midline, no JVD, no lymphadenopathy. Cardiovascular: Regular rate and rhythm, no murmurs, rubs or gallops, no peripheral edema. Respiratory: Clear to auscultation bilaterally, no tachypnea, no wheezing, no rhonchi, no rubs, no respiratory distress. Abdomen: Soft, nontender, nondistended, no rebound, no guarding, no peritoneal signs. Musculoskeletal: No joint swelling or deformity, normal muscle tone. Skin: No rashes or petechia, no signs of infection. Psychiatric: Alert and oriented, normal behavior and judgment for situation. Neurological: Alert and oriented to person, place, and time. Follows all commands. No focal deficits, speech is clear and fluent. <Deandre Wheeler MD - Last Filed: 04/29/25 02:12> Course Vital Signs Vital signs: Vital Signs Temperature 97.9 F 04/28/25 00:55 Pulse Rate 105 H 04/28/25 00:55 Respiratory Rate 18 04/28/25 00:55 Blood Pressure 123/56 L 04/28/25 00:55 Pulse Oximetry 100 04/28/25 00:55 Oxygen Delivery Room Air 04/28/25 00:55 Temperature 97.6 F 04/28/25 05:20 Pulse Rate 86 04/28/25 07:42 Respiratory Rate 20 04/28/25 07:42 Blood Pressure 100/58 L 04/28/25 07:42 Pulse Oximetry 100 04/28/25 07:42 Oxygen Delivery Room Air 04/28/25 00:55 <Deandre Wheeler MD - Last Filed: 04/29/25 02:12> Vital Signs Temperature 97.9 F 04/28/25 00:55 Pulse Rate 105 H 04/28/25 00:55 Respiratory Rate 18 04/28/25 00:55 Blood Pressure 123/56 L 04/28/25 00:55 Pulse Oximetry 100 04/28/25 00:55 Oxygen Delivery Room Air 04/28/25 00:55 Temperature 97.6 F 04/28/25 05:20 Pulse Rate 86 04/28/25 07:42 Respiratory Rate 20 04/28/25 07:42 Blood Pressure 100/58 L 04/28/25 07:42 Pulse Oximetry 100 04/28/25 07:42 Oxygen Delivery Room Air 04/28/25 00:55 <Jami Cao MD - Last Filed: 04/28/25 07:30> MDM - Abdominal Pain MDM Narrative Medical decision making narrative: The patient was evaluated by myself in the emergency department. History is obtained from patient who is an independent historian and physical exam was performed. External medical records were reviewed at this time. IV was established and pertinent tests were ordered. Patient was administered 1 L IV fluid bolus with normal saline, 20 mg of IV Pepcid, 4 mg of IV Zofran and 2 mg of IV morphine. EKG was obtained which revealed sinus rhythm rate of 92 beats per minute, no evidence of acute ischemia. EKG was independently interpreted by me and is currently pending official cardiology read. Laboratory results obtained revealing no acute process. Lipase normal. Imaging studies obtained included CT abdomen pelvis with IV contrast which is currently pending. Patient was signed out to a.m. ED physician pending CT results. PATIENT WAS SIGNED OUT TO ME AT SHIFT CHANGE WAITING FOR CT SCAN OF THE ABDOMEN AND PELVIS WITH IV CONTRAST WHICH SHOWED NO DEFINITE ACUTE INFLAMMATORY OR OBSTRUCTIVE PROCESS IS SEEN WITHIN THE ABDOMEN OR PELVIS. CURRENTLY PATIENT LYING DOWN IN BED, ASYMPTOMATIC. DIAGNOSIS ABDOMINAL PAIN OF UNKNOWN ETIOLOGY, HIGH LIKELY SECONDARY TO WEIGHT LOSS MEDICINE. DISCHARGED ON BENTYL AND ZOFRAN. <Deandre Wheeler MD - Last Filed: 04/29/25 02:12> The patient was evaluated by myself in the emergency department. History is obtained from patient who is an independent historian and physical exam was performed. External medical records were reviewed at this time. IV was established and pertinent tests were ordered. Patient was administered 1 L IV fluid bolus with normal saline, 20 mg of IV Pepcid, 4 mg of IV Zofran and 2 mg of IV morphine. EKG was obtained which revealed sinus rhythm rate of 92 beats per minute, no evidence of acute ischemia. EKG was independently interpreted by me and is currently pending official cardiology read. Laboratory results obtained revealing no acute process. Lipase normal. Imaging studies obtained included CT abdomen pelvis with IV contrast which was independently interpreted by me revealing [finding], which is pending final radiology interpretation. Differential diagnosis considerations include medication side effect, pancreatitis, peptic ulcer disease, gastritis. Comorbidities impacting this visit include recent galcanezumab initiation. I have evaluated and discussed social determinants of health with the patient that could potentially impact subsequent diagnosis and treatment plans. On repeat assessment of the patient, reevaluation revealed that the patient is doing well and is in no acute distress. Patient symptoms have improved since she arrived to our emergency department. Repeat vital signs were all reviewed and noted to be stable. Differential diagnosis and treatment plan were discussed with the patient at bedside. Patient agrees with discussion and after shared medical decision making agrees with discharge. All questions were answered to the patient's satisfaction. Patient will follow up with her PCP in 3-5 days. Patient was provided with strict return precautions and instructed to return to the emergency department if any new or worsening symptoms develop. The patient was discharged in stable condition. PATIENT WAS SIGNED OUT TO ME AT SHIFT CHANGE WAITING FOR CT SCAN OF THE ABDOMEN AND PELVIS WITH IV CONTRAST WHICH SHOWED NO DEFINITE ACUTE INFLAMMATORY OR OBSTRUCTIVE PROCESS IS SEEN WITHIN THE ABDOMEN OR PELVIS. CURRENTLY PATIENT LYING DOWN IN BED, ASYMPTOMATIC. DIAGNOSIS ABDOMINAL PAIN OF UNKNOWN ETIOLOGY, HIGH LIKELY SECONDARY TO WEIGHT LOSS MEDICINE. DISCHARGED ON BENTYL AND ZOFRAN. <Jami Cao MD - Last Filed: 04/28/25 07:30> Lab Data Result diagrams: 04/28/25 01:01 04/28/25 01:01 <Deandre Wheeler MD - Last Filed: 04/29/25 02:12> Labs: Lab Results 04/28/25 04/28/25 04/28/25 Range/Units 01:00 01:01 02:37 WBC 7.8 (4.5-10.0) K/mm3 RBC 4.77 (4.2-5.4) M/mm3 Hgb 14.6 (12.0-15.0) g/dL Hct 45.1 (37.0-47.0) % MCV 94.5 (80-100) fl MCH 30.6 (26-34) pg MCHC 32.4 (32-36) g/dl RDW 11.9 (11.5-14.5) % Plt Count 233 (150-375) k/mm3 MPV 10.3 (7.4-10.4) fl Immature Gran % (Auto) 0.1 (0-0.5) % Neut % (Auto) 70.8 (45.5-73.1) % Lymph % (Auto) 22.9 (18.3-44.2) % [place] % (Auto) 4.1 (2.6-8.5) % Eos % (Auto) 1.8 (0-4.4) % Baso % (Auto) 0.3 (0.2-1.2) % Lymph # (Auto) 1.79 (0.9-3.2) K/mm3 [place] # (Auto) 0.3 (0.1-0.6) K/mm3 Eos # (Auto) 0.1 (0-0.3) K/mm3 Baso # (Auto) 0.0 (0.0-0.1) K/mm3 Abs Immat Gran (auto) 0.01 (0.00-0.031) K/mm3 Absolute Neuts (auto) 5.6 (1.3-6.7) K/mm3 Absolute Nucleated RBC 0.000 (0.0-0.012) K/mm3 Nucleated RBC % 0.0 (0.0-0.2) % Sodium 141 (137-145) mmol/L Potassium 3.8 (3.4-5.0) mmol/L Chloride 104 (98-107) mmol/L Carbon Dioxide 24 (22-30) mmol/L Anion Gap 13 H (4-12) mmol/L BUN 15 (7-17) mg/dL Creatinine 0.77 (0.7-1.0) mg/dL Estim Creat Clear Calc 56 ml/min Estimated GFR > 60 (59 - ) Glucose 107 (65-110) mg/dL Calcium 10.0 (8.4-10.2) mg/dL Magnesium 2.2 (1.6-2.3) mg/dL Total Bilirubin 0.6 (0.2-1.3) mg/dL AST 22 (14-36) U/L ALT 12 (6-35) U/L Alkaline Phosphatase 71 (38-126) U/L Total Protein 7.6 (6.3-8.2) g/dL Albumin 4.9 (3.5-5.1) g/dL Lipase 124 (23-300) U/L Urine Color Yellow (Yellow) Urine Appearance Cloudy H (Clear) Urine pH 5.5 (5.0-9.0) Ur Specific [place] 1.022 (1.001-1.035) Urine Protein Negative (Negative) mg/dL Urine Glucose (UA) Negative (Negative) mg/dL Urine Ketones 2+ H (Negative) mg/dL Ur Blood (Man) Negative (Negative) Urine Nitrate Negative (Negative) Urine Bilirubin Negative (Negative) Urine Urobilinogen 0.2 (<2.0) mg/dL Leukocyte Esterase Rfl Negative (Negative) TYLER/UL Urine RBC 3-5 H (0-2) /hpf Urine WBC 0-5 (0-3) /hpf Ur Squamous Epith Cells Few (Few) /hpf Urine Bacteria None seen /hpf Urine Casts 0-2 <Deandre Wheeler MD - Last Filed: 04/29/25 02:12> Lab Results 04/28/25 04/28/25 04/28/25 Range/Units 01:00 01:01 02:37 WBC 7.8 (4.5-10.0) K/mm3 RBC 4.77 (4.2-5.4) M/mm3 Hgb 14.6 (12.0-15.0) g/dL Hct 45.1 (37.0-47.0) % MCV 94.5 (80-100) fl MCH 30.6 (26-34) pg MCHC 32.4 (32-36) g/dl RDW 11.9 (11.5-14.5) % Plt Count 233 (150-375) k/mm3 MPV 10.3 (7.4-10.4) fl Immature Gran % (Auto) 0.1 (0-0.5) % Neut % (Auto) 70.8 (45.5-73.1) % Lymph % (Auto) 22.9 (18.3-44.2) % [place] % (Auto) 4.1 (2.6-8.5) % Eos % (Auto) 1.8 (0-4.4) % Baso % (Auto) 0.3 (0.2-1.2) % Lymph # (Auto) 1.79 (0.9-3.2) K/mm3 [place] # (Auto) 0.3 (0.1-0.6) K/mm3 Eos # (Auto) 0.1 (0-0.3) K/mm3 Baso # (Auto) 0.0 (0.0-0.1) K/mm3 Abs Immat Gran (auto) 0.01 (0.00-0.031) K/mm3 Absolute Neuts (auto) 5.6 (1.3-6.7) K/mm3 Absolute Nucleated RBC 0.000 (0.0-0.012) K/mm3 Nucleated RBC % 0.0 (0.0-0.2) % Sodium 141 (137-145) mmol/L Potassium 3.8 (3.4-5.0) mmol/L Chloride 104 (98-107) mmol/L Carbon Dioxide 24 (22-30) mmol/L Anion Gap 13 H (4-12) mmol/L BUN 15 (7-17) mg/dL Creatinine 0.77 (0.7-1.0) mg/dL Estim Creat Clear Calc 56 ml/min Estimated GFR > 60 (59 - ) Glucose 107 (65-110) mg/dL Calcium 10.0 (8.4-10.2) mg/dL Magnesium 2.2 (1.6-2.3) mg/dL Total Bilirubin 0.6 (0.2-1.3) mg/dL AST 22 (14-36) U/L ALT 12 (6-35) U/L Alkaline Phosphatase 71 (38-126) U/L Total Protein 7.6 (6.3-8.2) g/dL Albumin 4.9 (3.5-5.1) g/dL Lipase 124 (23-300) U/L Urine Color Yellow (Yellow) Urine Appearance Cloudy H (Clear) Urine pH 5.5 (5.0-9.0) Ur Specific [place] 1.022 (1.001-1.035) Urine Protein Negative (Negative) mg/dL Urine Glucose (UA) Negative (Negative) mg/dL Urine Ketones 2+ H (Negative) mg/dL Ur Blood (Man) Negative (Negative) Urine Nitrate Negative (Negative) Urine Bilirubin Negative (Negative) Urine Urobilinogen 0.2 (<2.0) mg/dL Leukocyte Esterase Rfl Negative (Negative) TYLER/UL Urine RBC 3-5 H (0-2) /hpf Urine WBC 0-5 (0-3) /hpf Ur Squamous Epith Cells Few (Few) /hpf Urine Bacteria None seen /hpf Urine Casts 0-2 <Jami Cao MD - Last Filed: 04/28/25 07:30> Imaging Data Radiologist's impression: ITS Impressions Abdomen/Pelvis CT 04/28/25 07:41 IMPRESSION: 1. No acute abdominal abnormality. <Deandre Wheeler MD - Last Filed: 04/29/25 02:12> ITS Impressions Abdomen/Pelvis CT 04/28/25 07:41 IMPRESSION: 1. No acute abdominal abnormality. <Jami Cao MD - Last Filed: 04/28/25 07:30> Discharge Plan Discharge Clinical Impression: Abdominal pain <Deandre Wheeler MD - Last Filed: 04/29/25 02:12> Patient Disposition: Home <Deandre Wheeler MD - Last Filed: 04/29/25 02:12> Condition: Improved <Deandre Wheeler MD - Last Filed: 04/29/25 02:12> Instructions: Abdominal Pain (ED) <Deandre Wheeler MD - Last Filed: 04/29/25 02:12> Additional Instructions: RETURN IF SYMPTOMS ARE WORSENING , CALL YOUR FAMILY PHYSICIAN FOR APPOINTMENT, TAKE TYLENOL NEEDED FOR ACHES AND PAIN, CONTINUE HOME MEDICATIONS. STOP WEIGHT LOSS MEDICINE, CALL YOUR FAMILY PHYSICIAN THE WEIGHT LOSS MEDICINE SIDE EFFECT AND THE POSSIBILITY TO CHANGE IT TO SOMETHING ELSE. <Deandre Wheeler MD - Last Filed: 04/29/25 02:12> Patient Language: Scottish <Deandre Wheeler MD - Last Filed: 04/29/25 02:12> Prescriptions: New dicyclomine 20 mg tablet 20 mg PO QID Qty: 20 0RF ondansetron 4 mg tablet,disintegrating 4 mg PO Q4H 0 Days Qty: 10 0RF Rx Instructions: 1st dose 1-2 hr before radiation <Deandre Wheeler MD - Last Filed: 04/29/25 02:12> Follow-up/Referrals: Victor M,Sherine Nickerson MD [Primary Care Provider, Unknown] <Deandre Wheeler MD - Last Filed: 04/29/25 02:12>
[2025-04-28] MEDS: MORPHINE SULFATE (*CRX) 2 MG/ML INJ IV PUSH (01:44)
--- NOTE | 2025-04-28 02:16 | PC.NURSE ---
Patient aware of need for urine sample. Patient states she is unable to go at this time but will attempt in a bit. Patient a/ox4, declines straight cath.
[2025-04-28 02:41] LABS: Magnesium 2.2 mg/dL (1.6-2.3)
[2025-04-28 02:49] LABS: Add Urine Microscopic? YES; Appearance Urine Cloudy (Clear); Glucose Urine UA Negative (Negative); Leukocyte Esterase Ur Negative LEU/UL (Negative); Nitrate Urine Negative (Negative); Non Pathogenic Casts 0-2; Specific Grav Ur 1.022 (1.001-1.035)
--- NOTE | 2025-04-28 03:29 | PC.NURSE ---
Patient updated on plan of care, plan for CT at this time. Patient verbalizes understanding.
--- NOTE | 2025-04-28 03:37 | PC.NURSE ---
Patient taken to CT via stretcher at this time.
== END 2025-04-28 07:43 | disposition home or self-care (01) ==
PROVIDERS: Emergency Medicine; Emergency Provider Emergency Medicine; PCP Student in an Organized Health Care Education/Training Program
DX: R10.13 Epigastric pain (principal); R94.31 Abnormal electrocardiogram [ECG] [EKG]
CPT/HCPCS: 36415; 74177; 80053; 81001; 83690; 83735; 85025; 93005; 96361; 96374; 96375; 99284; J2270; J2405; J7030; Q9967